=== PATIENT | male | born 1950 | race Caucasian/White ===

== ENCOUNTER → 2017-06-09 | Outpatient (CLI) | payer OTHER | LOC: FIMAGING 12:37 | PROVIDERS: ATTEND Registered Nurse | DX: J09.X2 Influenza due to identified novel influenza A virus with other respiratory manifestations (principal) ==

== ENCOUNTER → 2018-01-10 | Outpatient (CLI) | payer OTHER | LOC: FIMAGING 19:13 | PROVIDERS: ATTEND Psychiatry & Neurology Neurology | DX: G20 Parkinson's disease (principal) ==

== ENCOUNTER → 2018-07-27 | Outpatient (CLI) | payer OTHER | LOC: FIMAGING 12:24 | PROVIDERS: ATTEND Family Medicine | DX: S62.622A Displaced fracture of middle phalanx of right middle finger, initial encounter for closed fracture (principal) ==